=== PATIENT | male | born 1970 | race African-American/Black ===

== ENCOUNTER 2016-05-15 01:54 | Emergency (ER) | payer BC, OTHER ==
[~2016-05-15] VITALS: Ht 177.8 cm; Wt 104.3 kg
--- NOTE | ~2016-05-15 | EKG ---
[address] [address] ELECTROCARDIOGRAM REPORT Name: JOSE KIM Room #: [facility]ITAL[facility]udson[id number] Admission: 05/15/16 Attend Phys: Discharge: 05/15/16 Date of : 70 Report #: [id number] THIS REPORT FOR: //name// [facility] ED Test Date: 2016-05-15 Test Time: 02:06:06 Pat Name: JOSE KIM Department: Room: Gender: M Order Filler: MICHELLE : 1970 Requested By: Micheline Kim Order Number: [id number] MD: Rishabh Gomes Measurements Intervals [place] Rate: 90 P: 20 CA: 143 QRS: -35 QRSD: 87 T: 31 QT: 355 QTc: 435 Interpretive Statements Sinus rhythm Probable left atrial enlargement Left axis deviation Compared to ECG 04/19/2016 22:16:07 No significant changes Electronically Signed On 05-15-2016 8:23:15 [employer] by Rishabh Gomes [email or web address] <ELECTRONICALLY SIGNED> By: Rishabh Gomes MD 05/15/16 0823 [id number] 5 Rishabh Gomes MD /RENE
[~2016-05-15 01:54] MED LIST: PREDNISONE 20 M20 MG PO; PROAIR HFA8.5 GM INH; TESSALON PERLE100 MG PO; TUSSIONEX PENN473 ML PO
[2016-05-15] MEDS ORDERED: PROAIR HFA8.5 GM INH (02:57)
[2016-05-15] MEDS ORDERED: PREDNISONE 20 M20 MG PO (02:57)
[2016-05-15 03:05] VITALS: BP 153/94
== END 2016-05-15 03:07 | disposition home or self-care (01) ==
LOC: ER 01:54
DX: J44.9 Chronic obstructive pulmonary disease, unspecified (principal); J98.01 Acute bronchospasm; F17.210 Nicotine dependence, cigarettes, uncomplicated

== ENCOUNTER 2017-05-25 09:32 | Emergency (ER) | payer BC, OTHER ==
[~2017-05-25] VITALS: Ht 177.8 cm; Wt 104.3 kg
[2017-05-25 11:02] LABS: URINE BILIRUBIN NEGATIVE (Negative); URINE BLOOD NEGATIVE (Negative); URINE CLARITY CLEAR; URINE COLOR YELLOW; URINE GLUCOSE-RANDOM* NEGATIVE (Negative); URINE KETONES NEGATIVE (Negative); URINE LEUKOCYTES NEGATIVE (Negative); URINE NITRITE NEGATIVE (Negative); URINE PROTEIN (DIPSTICK) NEGATIVE (Negative); URINE SPECIFIC GRAVITY 1.025 (1.005-1.035)
[2017-05-25] MEDS ORDERED: TIZANIDINE HCL4 MG PO (12:50)
[2017-05-25] MEDS ORDERED: NORCO 5-325 TA1 EACH PO (12:50)
[2017-05-25] MEDS ORDERED: IBUPROFEN 600600 M1 PO (12:50)
== END 2017-05-25 12:59 | disposition home or self-care (01) ==
LOC: ER 09:32
PROVIDERS: Emergency Medicine
DX: S39.012A Strain of muscle, fascia and tendon of lower back, initial encounter (principal); F17.210 Nicotine dependence, cigarettes, uncomplicated; X58.XXXA Exposure to other specified factors, initial encounter; Y93.89 Activity, other specified; Y92.89 Other specified places as the place of occurrence of the external cause; Y99.8 Other external cause status